=== PATIENT | female | born 1990 | race Caucasian/White ===

== ENCOUNTER 2020-08-09 00:22 | Emergency (ER) | payer OTHER ==
[2020-08-09] MEDS ORDERED: MEDROL 4MG DOSEP4 MG PO (04:06)
[2020-08-09] MEDS ORDERED: DUONEB 2.5-0.5M1 AMP INH (04:07)
[2020-08-09] MEDS ORDERED: PULMICORT FLE180 MCG INH (04:53)
[2020-08-09] MEDS ORDERED: SINGULAIR10 MG PO (04:53)
== END 2020-08-09 06:57 | disposition home or self-care (01) ==
LOC: FER 00:22
DX: J45.901 Unspecified asthma with (acute) exacerbation (principal); F17.200 Nicotine dependence, unspecified, uncomplicated; Z88.8 Allergy status to other drugs, medicaments and biological substances; Z20.822 Contact with and (suspected) exposure to COVID-19
CPT/HCPCS: 71045; 94640; 94664; J1100; U0002